=== PATIENT | male | born 1990 | race Asian ===

== ENCOUNTER 2021-10-01 19:40 | Emergency (ER) | payer BC ==
[~2021-10-01] VITALS: Ht 170.2 cm; Wt 83.0 kg
[2021-10-01 20:04] VITALS: BP 135/71
--- NOTE | 2021-10-01 20:10 | NUR ---
PATIENT TO LOBBY
--- NOTE | 2021-10-01 20:12 | NUR ---
Patient BIB by family from home. C/O mouth pain x 2 weeks. Patient reported, felt lump inside throat, irritation when was swallowing. No choking. PMHx: DENIES
--- NOTE | 2021-10-01 20:22 | NUR ---
Dr. Petty examining patient.
--- NOTE | 2021-10-01 21:19 | NUR ---
Patient discharged with v/s stable. Written and verbal after care instructions given and explained for Pharyngitis. Patient verbalized understanding. Ambulatory with steady gait. All questions addressed prior to discharge. Advised to follow up with PMD.
== END 2021-10-01 21:19 | disposition home or self-care (01) ==
LOC: MED 19:40
DX: J06.9 Acute upper respiratory infection, unspecified (principal); R07.0 Pain in throat; Z90.49 Acquired absence of other specified parts of digestive tract
CPT/HCPCS: 99281

== ENCOUNTER 2021-11-01 10:40 | Emergency (ER) | payer BC ==
[~2021-11-01] VITALS: Ht 167.6 cm; Wt 79.8 kg
[2021-11-01 10:50] VITALS: BP 142/77
--- NOTE | 2021-11-01 11:10 | NUR ---
Patient was taken to room 1 via wheelchair.
--- NOTE | 2021-11-01 11:31 | NUR ---
31 y/o male with c/o cough x2 months. Per patient and family "patient was seen previously here for cough and has had no relief." Patient has cough, headache and chest burning x2 months. Patient states he coughed up blood this morning. Patient has throat pain 9. Medical History: DENIES NKDA
--- NOTE | 2021-11-01 11:45 | NUR ---
31/M PRESENTS TO ED WITH C/O COUGH AND "CHEST BURNING" X2 MONTHS. PATIENT REPORTS HE HAS BEEN SEEN PREVIOUSLY FOR SAME SYMPTOMS AND RECEIVED XRAYS AND GIVEN PRESCRIPTIONS FOR SYMPTOMS BUT REPORTS SYMPTOMS HAVE CONTINUED WITH NO RELIEF. PATIENT DENIES FEVER, N/V/D OR URINARY SYMPTOMS, REPORTS HE COUGHED UP BLOOD THIS MORNING.
[2021-11-01] MEDS ORDERED: FAMOTIDINE 20 MG TAB PO ONE (12:50)
[2021-11-01] MEDS ORDERED: KETOROLAC 30 MG/ML VIAL IM ONE (12:50)
[2021-11-01] MEDS ORDERED: DEXAMETHASONE 10 MG/ML VIAL IM ONE (12:50)
[2021-11-01] MEDS ORDERED: ALUM355S59 PO (13:04)
[2021-11-01] MEDS ORDERED: FAMO-90 PO (13:04)
[2021-11-01] MEDS ORDERED: BENZ150C2 PO (13:06)
[2021-11-01] MEDS ORDERED: DEC4 PO (13:27)
[2021-11-01 13:32] VITALS: BP 119/71
--- NOTE | 2021-11-01 13:32 | NUR ---
DPatient discharged with v/s stable. Written and verbal after care instructions given. Patient alert, oriented and verbalized understanding of instructions. Ambulatory with steady gait. All questions addressed prior to discharge. ID band removed. Patient advised to follow up with PMD. Rx of MAALOX, BENZONATATE AND PEPCID given. Opportunity to ask questions provided and answered.
--- NOTE | 2021-11-01 13:33 | NUR ---
The patient's care was reviewed and supervised by Analy Fiore RN.
== END 2021-11-01 13:32 | disposition home or self-care (01) ==
LOC: MED 10:40
DX: B34.9 Viral infection, unspecified (principal); R07.0 Pain in throat; Z90.49 Acquired absence of other specified parts of digestive tract; Z79.899 Other long term (current) drug therapy
CPT/HCPCS: 71045; 99283; J1100; J1885